=== PATIENT | female | born 1935 | race Caucasian/White ===

== ENCOUNTER 2018-05-01 15:34 | Emergency (ER) | payer MEDICARE ==
--- NOTE | 2018-05-01 17:12 | RAD ---
LEFT FOOT THREE VIEWS: History: Pain. Comparison: None. FINDINGS: Prior surgical changes of the great toe metatarsal head and neck. No acute displaced fracture or apryl lignment. Some remodeling of the proximal interphalangeal joint of the small toe, likely chronic in n ature. Small dorsal and plantar calcaneal spurs. Calcifications of the Achilles tendon. Moderate dorsal edema of the midfoot. IMPRESSION: Soft tissue swelling may reflect contusion. POS: [facility]
== END 2018-05-01 17:18 | disposition home or self-care (01) ==
LOC: SCSER 15:34
DX: S90.32XA Contusion of left foot, initial encounter (principal); I10 Essential (primary) hypertension; Z79.899 Other long term (current) drug therapy; W20.8XXA Other cause of strike by thrown, projected or falling object, initial encounter

== ENCOUNTER 2018-09-30 01:20 | Emergency (ER) | payer MEDICARE ==
[2018-09-30] MEDS ORDERED: Ondansetron ODT 4 MG TAB ONE (01:45)
[2018-09-30 02:06] LABS: #Basophils 0.1 thou/uL (0.0-0.2); #Eosinphils 0.2 thou/uL (0.0-0.7); #Lymphocytes 0.6 thou/uL (1.20-3.40); #Monocytes 0.8 thou/uL (0.11-0.59); #Neutrophils 9.5 thou/uL (1.40-6.50); %Basophils 0.8 % (0.0-1.0); %Eosinophils 1.4 % (0.0-10.0); %Lymphocytes 5.5 % (21.0-51.0); %Monocytes 6.7 % (0.0-10.0); %Neutrophils 85.6 % (42.0-75.0); Hemoglobin 14.9 g/dL (12.0-16.0); Mean Corpuscular HGB CONC 33.4 g/dL (32.0-36.0); Mean Corpuscular Hemoglobin 28.8 pg (27.0-31.0); Mean Corpuscular Volume 86.3 fL (78.0-98.0); Mean Platelet Volume 8.8 fL (7.4-10.4); Platelet Count 130 thou/uL (130-400); RBC Distribution Width 12.1 % (11.5-14.5); Red Blood Cell (RBC) Count 5.19 mill/uL (4.20-5.40); White Blood Cell (WBC) Count 11.1 thou/uL (4.8-10.8)
[2018-09-30 02:22] LABS: ALT (SGPT) 10 U/L (8-55); AST (SGOT) 13 U/L (5-34); Albumin 3.9 g/dL (3.4-4.8); Alkaline Phosphatase 62 U/L (40-150); Anion Gap 16 mmol/L (10-20); BUN (Urea Nitrogen) 16 mg/dL (9.8-20.1); Bilirubin, Total 0.8 mg/dL (0.2-1.2); Calc. Creatinine Clearance 0 mL/min (70-130); Calcium 9.3 mg/dL (7.8-10.44); Carbon Dioxide 25 mmol/L (23-31); Chloride 102 mmol/L (98-107); Estimated GFR-MDRD 53; Globulin 2.3 g/dL (2.4-3.5); Glucose 148 mg/dL (83-110); Potassium 3.8 mmol/L (3.5-5.1); Protein, Total 6.2 g/dL (6.0-8.3); Sodium 139 mmol/L (136-145)
[2018-09-30 02:25] LABS: Bilirubin Negative (Negative); Blood, Urine Trace (Negative); Glucose, Urine (Dipstick) Negative (Negative); Leukocyte Negative (Negative); Nitrite Negative (Negative); Protein, Urine (Dipstick) Negative (Neg-Trace); Urobilinogen 0.2 mg/dL (0.2-1.0)
[2018-09-30 02:28] LABS: Clarity Cloudy (Clear)
[2018-09-30 02:34] LABS: Hyaline Casts/LPF 7-10 HYALINE CAST LPF (0-3 Hyaline); RBC/HPF 0-3 HPF (0-3)
[2018-09-30 02:35] LABS: Bacteria/HPF Rare-Few HPF (None Seen)
[2018-09-30] MEDS ORDERED: cefTRIAXone\\ROCEPHIN 1 GM VIAL ONE (02:42)
[2018-09-30] MEDS ORDERED: Sodium Chloride 0.9% 100 ML ONE (02:43)
[2018-09-30 05:39] LABS: Lactic Acid 1.7 mmol/L (0.5-2.2)
--- NOTE | 2018-09-30 08:30 | RAD ---
CHEST 2 VIEWS: Date: 09/30/18 HISTORY: Fever. COMPARISON: None. FINDINGS: Lungs are clear. No pneumothorax or effusion. Cardiac silhouette and mediastinal contours within norm al limits. Surgical clips along the left axilla. IMPRESSION: 1. No acute intrathoracic abnormality. 2. Old compression deformity lower thoracic spine. POS: [facility]
== END 2018-09-30 06:12 | disposition home or self-care (01) ==
LOC: SCSER 01:20
DX: R53.83 Other fatigue (principal); R50.9 Fever, unspecified; M19.90 Unspecified osteoarthritis, unspecified site; I10 Essential (primary) hypertension; Z79.899 Other long term (current) drug therapy
CPT/HCPCS: 36415; 51701; 71046; 80053; 81003; 81015; 83605; 85025; 87040; 87086; 87804; 96361; 96365; A4353; J0696; J7050; Q0162

== ENCOUNTER 2018-12-20 15:42 | Outpatient (CLI) | payer MEDICARE ==
--- NOTE | 2018-12-20 18:53 | RAD ---
EXAM: RIGHT TIBIA AND FIBULA TWO VIEWS: 12/20/18 HISTORY: Right leg pain since yesterday without associated injury. FINDINGS/IMPRESSION: Mild degenerative changes of the knee and ankle. No fracture, dislocation, or other significant acute osseous abnormality. POS: [facility]
== END 2018-12-20 15:43 | disposition home or self-care (01) ==
LOC: SCSRAD 15:42
PROVIDERS: ATTEND Nurse Practitioner Family
DX: M79.604 Pain in right leg (principal); I10 Essential (primary) hypertension; M19.079 Primary osteoarthritis, unspecified ankle and foot; M17.9 Osteoarthritis of knee, unspecified; Z85.828 Personal history of other malignant neoplasm of skin; Z92.3 Personal history of irradiation
CPT/HCPCS: 36415; 80053; 85025; 85379

== ENCOUNTER 2018-12-21 09:14 | Outpatient (CLI) | payer MEDICARE ==
--- NOTE | 2018-12-21 10:07 | ULT ---
RIGHT LOWER EXTREMITY VENOUS DUPLEX EXAM: History: Right leg pain. FINDINGS: Real-time color doppler evaluation of the right lower extremity was performed from groin to calf. Thi s includes evaluation of common femoral, superficial, and profunda femoral, saphenous, popliteal and posterior tibial veins. This shows a patent deep venous system with normal compressibility and augmentation. IMPRESSION: No evidence of DVT of the right lower extremity. POS: [facility]
== END 2018-12-21 09:15 | disposition home or self-care (01) ==
LOC: SCSULT 09:14
PROVIDERS: ATTEND Nurse Practitioner Family
DX: M79.604 Pain in right leg (principal); R79.89 Other specified abnormal findings of blood chemistry

== ENCOUNTER 2019-09-11 13:36 | Outpatient (CLI) | payer MEDICARE ==
--- NOTE | 2019-09-11 14:03 | RAD ---
EXAM: Chest PA and lateral: HISTORY: Preop COMPARISON: 09/30/2018 FINDINGS: Lung gray are clear. Vascular markings are normal. Heart and mediastinum appear unremarkable. Large fixed diaphragmatic hernia. Postoperative clips lateral left breast, stable Anterior wedge compression of a lower thoracic vertebra, T12. Stable from prior exam. IMPRESSION: Large fixed diaphragmatic hernia. No acute lung process.
[2019-09-11 14:10] LABS: #Basophils 0.1 thou/uL (0.0-0.2); #Eosinphils 0.4 thou/uL (0.0-0.7); #Lymphocytes 3.2 thou/uL (1.20-3.40); #Monocytes 0.6 thou/uL (0.11-0.59); #Neutrophils 4.4 thou/uL (1.40-6.50); %Eosinophils 4.1 % (0.0-10.0); %Lymphocytes 36.8 % (21.0-51.0); %Monocytes 7.3 % (0.0-10.0); %Neutrophils 50.9 % (42.0-75.0); Mean Corpuscular HGB CONC 31.7 g/dL (32.0-36.0); Mean Corpuscular Hemoglobin 29.3 pg (27.0-31.0); Mean Corpuscular Volume 92.3 fL (78.0-98.0); Mean Platelet Volume 9.9 fL (7.4-10.4); Platelet Count 219 thou/uL (130-400); RBC Distribution Width 13.1 % (11.5-14.5); Red Blood Cell (RBC) Count 5.13 mill/uL (4.20-5.40); White Blood Cell (WBC) Count 8.7 thou/uL (4.8-10.8)
[2019-09-11 14:24] LABS: ALT (SGPT) 11 U/L (8-55); AST (SGOT) 17 U/L (5-34); Albumin 4.2 g/dL (3.4-4.8); Alkaline Phosphatase 68 U/L (40-110); Anion Gap 14 mmol/L (10-20); BUN (Urea Nitrogen) 17 mg/dL (9.8-20.1); Bilirubin, Total 0.7 mg/dL (0.2-1.2); Calc. Creatinine Clearance 0 mL/min (70-130); Calcium 9.6 mg/dL (7.8-10.44); Carbon Dioxide 29 mmol/L (23-31); Chloride 103 mmol/L (98-107); Estimated GFR-MDRD 52; Globulin 2.4 g/dL (2.4-3.5); Glucose 91 mg/dL (83-110); Potassium 3.7 mmol/L (3.5-5.1); Protein, Total 6.6 g/dL (6.0-8.3); Sodium 142 mmol/L (136-145)
== END 2019-09-11 13:37 | disposition home or self-care (01) ==
LOC: SCSRAD 13:36
PROVIDERS: ATTEND Nurse Practitioner Family
DX: Z01.818 Encounter for other preprocedural examination (principal); K44.9 Diaphragmatic hernia without obstruction or gangrene; Z92.3 Personal history of irradiation
CPT/HCPCS: 36415; 71046; 80053; 85025